=== PATIENT | female | born 1990 | race African-American/Black ===

== ENCOUNTER 2017-01-01 21:12 | Emergency (ER) | payer OTHER ==
--- NOTE | ~2017-01-01 | US106 ---
[facility] A Service of [facility] & [facility] RADIOLOGY TEXT RESULTS PATIENT: BLAIRE TAYLOR LOCATION: CFTX : [birth year] UNIT #: [id number] AGE: [address]: Linh Miller APRN SEX: F ORDER DR: [id number] [facility] [address] [place], [place] [address] [id number] E MR#: [id number] Acc #: [id number] NAME: BLAIRE TAYLOR : 1990 SEX: F STUDY DATE/TIME: 01/01/2017 22:37 UNIT: [facility] ROOM: STUDY DESCRIPTION: US Preg Uterus Transvaginal Attending Physician: Linh Miller A.P.R.N. Ordering Physician: Linh Miller A.P.R.N. Primary Care Physician: [facility] MEDICAL IMAGING REPORT This report is preliminary unless electronic signature is present EXAM Pelvic ultrasound, 01/01/2017 at 22:37 INDICATIONS Pelvic pain and bleeding for the last 5 days. Quantitative beta HCG is 21,847 mIU/mL. The patient has prior history of miscarriage. FINDINGS Transvaginal imaging of the pelvis was obtained in multiple planes. No comparison. The right ovary shows perfusion by Doppler. The left ovary cannot be identified. There is an irregular gestational sac or 2 immediately adjacent gestational sacs. At least one small yolk sac is visible. No clear poles are seen and there is no evidence of a heart rate by Doppler. This could be due to a very early twin gestation. The rest of the uterus is unremarkable. There is no free fluid. IMPRESSION 1. The left ovary is not seen. The right ovary is normal. 2. Irregular gestational sac versus 2 immediately adjacent separate gestational sacs. At least one tiny yolk sac is present. There is evidence of soft tissue within the adjacent cystic lesion. This may reflect an extremely early twin gestation. Dedicated obstetrical follow up is recommended. Dictated by... Johan Turner Jr., M.D. THIS IS AN ELECTRONICALLY VERIFIED REPORT Johan Turner Jr., M.D. at 01/02/2017 5:54 AM DEEJAY/elie [facility] A Service of [facility] & [facility] RADIOLOGY TEXT RESULTS PATIENT: BLAIRE TAYLOR LOCATION: [facility] #: [id number] : [birth year] UNIT #: [id number] AGE: [address]: Linh Miller APRN SEX: F ORDER DR: TD: 01/02/2017 00:23 JOB #: [id number] MEDICAL IMAGING REPORT Page 1 of 1 COPY
[~2017-01-01 21:12] MED LIST: DARVOCET-N 1001 TAB PO; DICLOFENAC PO; IBUPROFEN800 MG PO; MEDROL PO; NO MEDICATIONS; PHENERGAN25 MG PO; PREDNISONE PO; PRENATAL1 TA1 PO; PRILOSEC20 MG PO
[2017-01-01 21:58] LABS: URINE SOURCE CLEAN CATCH
[2017-01-01 22:05] LABS: URINE APPEARANCE CLEAR; URINE BILIRUBIN NEG (NEG); URINE BLOOD 1+ (NEG); URINE COLOR YELLOW; URINE GLUCOSE NEG (NEG); URINE KETONE NEG (NEG); URINE LEUKOCYTE ESTERASE NEG (NEG); URINE NITRATE NEG (NEG); URINE PROTEIN NEG (NEG); URINE SPECIFIC GRAVITY 1.026 (1.003-1.035)
[2017-01-01 22:07] LABS: CULTURE INDICATED? NO; U HYALINE CASTS AUWI 0-2 /[LPF]; URINE BACTERIA AUWI NEG (NEGATIVE); URINE SQUAMOUS EPITHELIAL CELL NONE SEEN /[HPF]; UWBCS1 AUWI 0-2 (0-5)
[2017-01-01 22:43] LABS: BASOPHIL% 0.3 % (0-2.5); EOSINOPHIL# 0.2 X10e3 (0-0.7); EOSINOPHIL% 1.9 % (0.0-7.0); HEMATOCRIT 35.3 % (35.0-45.0); HEMOGLOBIN 11.5 gm/dL (12.0-16.0); LYMPHOCYTE# 2.7 X10e3 (1.0-3.5); LYMPHOCYTE% 27.6 % (17.0-45.0); MEAN CELL VOLUME 93.8 FL (83-96); MEAN CORPUSCULAR HEMOGLOBIN 30.4 PG (28-34); MEAN CORPUSCULAR HGB CONC 32.5 g/dL (30-36); MEAN PLATELET VOLUME 8.6 FL (6.5-11.5); MONOCYTE# 0.8 X10e3 (0-1.0); MONOCYTE% 8.3 % (3.0-12.0); NEUTROPHIL% 61.9 % (40-75); PLATELET COUNT 231 X10e3 (140-420); RED BLOOD COUNT 3.77 X10e (3.90-5.30); WHITE BLOOD COUNT 9.6 X10e3 (4.0-10.5)
[2017-01-01 22:44] LABS: DIFF IND NO
[2017-01-01 23:08] LABS: ALBUMIN SERUM 3.6 g/dL (3.5-5.0); ALKALINE PHOSPHATASE 45 U/L (32-92); ALT (SGPT) 12 U/L (10-40); AMYLASE 19 U/L (0-46); AST (SGOT) 13 U/L (10-42); BILIRUBIN,TOTAL 0.4 mg/dL (0.2-2.0); BLOOD UREA NITROGEN 11 mg/dL (9-23); BUN/CREATININE RATIO 18.33; CALCIUM SERUM 9.1 mg/dL (8.4-10.2); CARBON DIOXIDE 22 mmol/L (22-31); CHLORIDE 105 mmol/L (100-111); CREATININE SERUM 0.6 mg/dL (0.6-1.4); GLOM FILT RATE Estimated 146.8 mL/min (>60); GLUCOSE FASTING 94 mg/dL (70-110); LIPASE 22 U/L (22-51); POTASSIUM 3.5 mmol/L (3.5-5.1); PROTEIN TOTAL SERUM 7.5 g/dL (6.0-8.3); SODIUM 133 mmol/L (135-145)
[2017-01-01 23:09] LABS: BILIRUBIN, DIRECT <0.1 mg/dL (0.0-0.2); BILIRUBIN,INDIRECT 0.3 mg/dL (0.0-0.9)
[2017-01-04 14:57] LABS: CHLAMYDIA TRACH Not Detected (Not Detected); N GONOR Not Detected (Not Detected)
== END 2017-01-02 00:45 | disposition home or self-care (01) ==
LOC: CED 21:12 → CFTX 21:12
PROVIDERS: Nurse Practitioner
DX: O20.0 Threatened abortion (principal); Z3A.08 8 weeks gestation of pregnancy; O99.331 Smoking (tobacco) complicating pregnancy, first trimester
CPT/HCPCS: 36415; 76817; 80048; 80076; 81003; 82150; 83690; 84702; 84703; 85025; 86900; 86901; 87491; 87591; 87808; 87905; 96360; 99284

== ENCOUNTER 2017-01-14 17:44 | Emergency (ER) | payer OTHER ==
[2017-01-14 18:22] LABS: BASOPHIL% 0.3 % (0-2.5); EOSINOPHIL# 0.2 X10e3 (0-0.7); EOSINOPHIL% 2.9 % (0.0-7.0); HEMATOCRIT 33.6 % (35.0-45.0); HEMOGLOBIN 10.9 gm/dL (12.0-16.0); LYMPHOCYTE# 2.4 X10e3 (1.0-3.5); LYMPHOCYTE% 29.9 % (17.0-45.0); MEAN CELL VOLUME 94.8 FL (83-96); MEAN CORPUSCULAR HEMOGLOBIN 30.8 PG (28-34); MEAN CORPUSCULAR HGB CONC 32.5 g/dL (30-36); MEAN PLATELET VOLUME 8.4 FL (6.5-11.5); MONOCYTE# 0.9 X10e3 (0-1.0); MONOCYTE% 11.5 % (3.0-12.0); NEUTROPHIL# 4.4 X10e3 (1.5-7.1); NEUTROPHIL% 55.4 % (40-75); PLATELET COUNT 224 X10e3 (140-420); RED BLOOD COUNT 3.54 X10e (3.90-5.30); WHITE BLOOD COUNT 7.9 X10e3 (4.0-10.5)
[2017-01-14 18:26] LABS: DIFF IND NO
[2017-01-14 18:52] LABS: URINE SOURCE CLEAN CATCH
[2017-01-14 18:56] LABS: URINE APPEARANCE CLEAR; URINE BILIRUBIN NEG (NEG); URINE BLOOD 3+ (NEG); URINE COLOR YELLOW; URINE GLUCOSE NEG (NEG); URINE KETONE NEG (NEG); URINE LEUKOCYTE ESTERASE NEG (NEG); URINE NITRATE NEG (NEG); URINE PH 6.5 (5-8); URINE PROTEIN NEG (NEG); URINE SPECIFIC GRAVITY 1.024 (1.003-1.035); URINE UROBILINOGEN 0.2 MG/DL (NEG)
[2017-01-14 18:59] LABS: U HYALINE CASTS AUWI 0-2 /[LPF]; URBCS1 AUWI 25-50 /[HPF] (0-2); URINE BACTERIA AUWI NEG (NEGATIVE); URINE SQUAMOUS EPITHELIAL CELL NONE SEEN /[HPF]
[2017-01-14 19:03] LABS: CULTURE INDICATED? NO
== END 2017-01-14 19:25 | disposition home or self-care (01) ==
LOC: CFTX 17:44 → CED 17:44 → CFTX 18:57
PROVIDERS: Physician Assistant
DX: O03.4 Incomplete spontaneous abortion without complication (principal); Z91.018 Allergy to other foods; Z3A.01 Less than 8 weeks gestation of pregnancy
CPT/HCPCS: 36415; 81003; 84702; 84703; 85025; 99284